=== PATIENT | male | born 1995 | race African-American/Black ===

== ENCOUNTER 2017-03-01 20:48 | Emergency (ER) | payer OTHER ==
[~2017-03-01] VITALS: Ht 177.8 cm; Wt 89.8 kg
[2017-03-01] MEDS ORDERED: ACETAMINOPHEN 325 MG TAB PO ONE (23:15)
--- NOTE | 2017-03-01 23:40 | REPUSA ---
CT of the head Clinical history: trauma. Technique: Multiple axial CT images were obtained through the head without administration of contrast . Findings: The ventricles and sulci are symmetric bilaterally. There is no evidence of acute hemorrhag e or infarct. There is no midline shift, mass effect, or extra-axial fluid collection. The osseous st ructures are unremarkable. The visualized paranasal sinuses and mastoid air cells are clear. Impression: Negative study.
--- NOTE | 2017-03-01 23:40 | REPUSA ---
CT of the cervical spine Clinical history: Pain. Trauma. Technique: Multiple axial CT images were obtained through the cervical spine without administration o f contrast. Coronal and sagittal 3-D reconstructed images were also obtained. Comparison: None. Findings: The cervical vertebral bodies are in satisfactory positioning and alignment. There is an acute nondis placed fracture at the right anterior inferior aspect of the C5 vertebral body, extending to the disc space. The odontoid process is intact. Intervertebral disc spaces are well-maintained. There is no e vidence of facet subluxation. The neural foramen appear grossly patent. The cervical cranial junction is intact. The cervical spinal canal demonstrates normal caliber and contour without evidence of spi nal stenosis. The surrounding soft tissues are within normal limits. Impression: Acute, nondisplaced fracture of the anterior inferior right C5 vertebral body. ER physician was notified of these findings at 11:38 PM on 03/01/2017.
--- NOTE | 2017-03-02 03:00 | REPUSA ---
CLINICAL HISTORY: Neck pain. TECHNIQUE: Fast spin echo T2 and spin echo T1 sequences were obtained in axial and sagittal planes. Acute displaced fracture of the anterior/inferior aspect of C5 vertebral body. No associated retropul marc or secondary canal stenosis. There is straightening of normal cervical lordosis compatible with muscular spasm. Mild multilevel disk dehydration is seen. At C2-C3, no abnormalities are noted. There is no disk herniation or bulge. At C3-C4 , mild diffuse disc bulge. No significant narrowing of the spinal canal. Mild bilateral neur al foramina narrowing. At C4-C5, mild diffuse disc bulge. No significant narrowing of the spinal canal. Mild bilateral neura l foramina narrowing. At C5-C6, mild diffuse disc bulge. No significant narrowing of the spinal canal. Mild bilateral neura l foramina narrowing. At C6-C7, mild diffuse disc bulge. No significant narrowing of the spinal canal. Mild bilateral neura l foramina narrowing. At C7-T1 , no abnormalities are noted. There is no disk herniation or bulge. IMPRESSION: Acute mildly displaced fracture of the anterior/inferior aspect of C5 vertebral body. No associated retropulsion or secondary canal stenosis. No associated intraspinal hematoma. Straightening of normal cervical lordosis compatible with muscular spasm. Thank you for your kind referral of this patient.
[2017-03-02] MEDS ORDERED: NORCO 5/325MG TABLET (BULK FOR ED) PO ONE (04:45)
[2017-03-02 05:15] VITALS: BP 175/99
--- NOTE | 2017-03-02 08:29 | REP ---
Cervical spine to the lateral views with flexion and extension: There are no other views. Vertebral body heights, interspacing alignment are normal C 1-C7. T1 is obscured by the shoulders. The facets are normally aligned. There is no listhesis. The prevertebral soft tissues are normal. Impression: There is no listhesis. Otherwise, negative lateral views of the cervical spine C1-C7. I recommend the patient return for full cervical spine series including a lateral view that includes T1. If this is not possible, recommend CT of the cervical spine. Signed by Jatinder Wolff MD 03/02/2017 08:20 A
== END 2017-03-02 05:00 | disposition home or self-care (01) ==
LOC: M ED 21:50
DX: S12.400A Unspecified displaced fracture of fifth cervical vertebra, initial encounter for closed fracture (principal); W19.XXXA Unspecified fall, initial encounter; Y92.89 Other specified places as the place of occurrence of the external cause; Y93.89 Activity, other specified; Y99.8 Other external cause status

== ENCOUNTER → 2017-05-29 | Outpatient (CLI) | payer OTHER ==
--- NOTE | 2017-05-29 12:57 | REP ---
Clinical: Pain. Fracture. Technique: AP, lateral, flexion/extension, bilateral oblique, and open-mouth views. Findings: Alignment and lordosis is maintained. There is no evidence for acute fracture / compression injury or subluxation. Stable moderate focal degenerative change at the C5-6 level. Oblique views demonstrate patent neural foramen. Open mouth view demonstrates normal C1-C2 articulation and odontoid process. Impression: Stable degenerative changes at the C5-6 level. Otherwise normal examination. Signed by Jcarlos Ortiz MD 05/29/2017 12:48 P
== END ==
LOC: M RAD 11:44
PROVIDERS: ATTEND Neurological Surgery
DX: M51.36 Other intervertebral disc degeneration, lumbar region (principal)

== ENCOUNTER 2017-12-13 13:07 | Emergency (ER) | payer OTHER ==
[2017-12-13] MEDS: NS 1,000 ML IV ×2 (16:15)
[2017-12-13] MEDS: GI COCKTAIL 50ML BTL(HYOSCYAMINE/MAALOX/LIDOCAINE VISCOUS)(1:3:1) PO ×2 (16:15)
[2017-12-13] MEDS: ASPIRIN 81 MG CHEW TABLET PO ×2 (16:15)
[2017-12-13 16:23] LABS: BASO # 0.1 10^3/uL (0.0-0.2); BASO % 0.4 % (0.0-1.0); EOS # 0.2 10^3/uL (0.0-0.50); EOS % 1.4 % (0.0-3.0); HEMATOCRIT 45.9 % (42.0-52.0); HEMOGLOBIN 16.6 g/dl (14.0-18.0); IMMATURE GRANULOCYTE % 0.2 % (0-0); LYMPH # 3.6 10^3/uL (1.5-6.5); LYMPH % 30.4 % (24.0-44.0); MEAN CORPUSCULAR HGB CONC 36.2 g/dl (32.0-36.5); MEAN CORPUSCULAR VOLUME 77.5 fl (80.0-96.0); MONO # 0.7 10^3/uL (0.0-0.8); MONO % 5.6 % (0.0-5.0); NEUTROPHILS # 7.3 10^3/uL (1.8-7.7); PLATELET COUNT, AUTOMATED 257 10^3/uL (150-450); RED BLOOD COUNT 5.92 10^6/uL (4.30-6.10); RED CELL DISTRIBUTION WIDTH 12.9 % (11.5-14.5); WHITE BLOOD COUNT 11.8 10^3/uL (4.0-10.0)
[2017-12-13 16:35] LABS: INR 1.08; PROTHROMBIN TIME 14.2 SECONDS (12.4-14.5)
[2017-12-13 16:44] LABS: ANION GAP 5 MEQ/L (8-16); BLOOD UREA NITROGEN 18 MG/DL (7-18); CARBON DIOXIDE LEVEL 30 MEQ/L (21-32); CHLORIDE LEVEL 107 MEQ/L (98-107); CPK CREATINE PHOSPHOKINASE 184 U/L (39-308); CREATININE FOR GFR 1.21 MG/DL (0.70-1.30); GLOMERULAR FILTRATION RATE > 60.0 (>60); GLUCOSE, FASTING 96 MG/DL (70-100); POTASSIUM SERUM 4.2 MEQ/L (3.5-5.1); SODIUM LEVEL 142 MEQ/L (136-145); TROPONIN I < 0.02 NG/ML (< 0.10)
[2017-12-13 16:50] LABS: CK-MB VALUE MASS 1.3 NG/ML (0.0-3.6)
== END 2017-12-13 17:43 | disposition home or self-care (01) ==
LOC: M ED 13:07
DX: R07.89 Other chest pain (principal)
CPT/HCPCS: 71046

== ENCOUNTER → 2018-08-04 | Outpatient (CLI) | payer OTHER | LOC: M RAD 08:59 | DX: K22.8 Other specified diseases of esophagus (principal) | CPT/HCPCS: 78070 ==

== ENCOUNTER → 2018-09-02 | Outpatient (CLI) | payer OTHER | LOC: M RAD 09:04 | DX: R22.1 Localized swelling, mass and lump, neck (principal) | CPT/HCPCS: 70490 ==